=== PATIENT | male | born 1970 | race Caucasian/White ===

== ENCOUNTER 2024-12-27 02:32 | Day surgery (SDC) | payer OTHER, SELFPAY ==
[2024-12-15 08:49] VITALS: BMI 29.7
--- OUTSIDE RECORDS SUMMARY | 2024-12-27 02:34 | XMS_ITS ---
Author Organization Unknown ENCOUNTERS Encounter Performer Location Date Diagnosis Diagnosis Status Outpatient [facility] [facility] [address] [place] [id number] *Note: Encounters from your own facility or health system may be excluded. Allergies, Adverse Reactions, Alerts Allergen Type Severity Identification Date Medications Name Date Quantity Days Supplied GPI Number
[2024-12-27 08:40] VITALS: BP 134/88; PULSE 78; RESP 18; TEMP 36.2; O2SAT 98
--- NOTE | 2024-12-27 08:52 | WPDANESEPPF ---
Anes - Initial Pre Proc Eval Procedure: Operation Date: 12/27/24 10:00 Proposed Procedures p Screening Colonoscopy - Mp Marsh DO Date/Time: 12/27/24 08:52 Surgeon: Mp Marsh DO Pre Op Diagnosis: Neoplasm screening Patient Data Age: 54 Gender: M Height: 1.85 m Weight: 99.1 kg Last Vital Signs Temp 36.2 C L 12/27/24 08:40 Pulse 78 12/27/24 08:40 Resp 18 12/27/24 08:40 BP 134/88 12/27/24 08:40 Pulse Ox 98 12/27/24 08:40 O2 Del Method Room Air 12/27/24 08:40 Allergies Allergy/AdvReac Type Severity Reaction Status Date / Time No Known Allergies Allergy Verified 12/27/24 08:39 Home Medications ?Medication ?Instructions ?Recorded ?Confirmed ?Type lisinopril 10 mg tablet 10 mg PO DAILY #90 tabs 05/19/24 12/15/24 Rx atorvastatin 10 mg tablet 10 mg PO DAILY #90 tabs 10/12/24 12/15/24 Rx Patient hx anesthesia problems: none Family hx anesthesia problems: none Results Review: All pre-operative results and documents have been reviewed as part of the pre-operative evaluation. [facility] Past Medical History Medical History HLD (hyperlipidemia) HTN (hypertension) Surgical History Surgical History History of inguinal hernia repair left Torn ACL R s/p repair Family History Family History Father Hypertension High cholesterol Carcinoma of colon Mother Hypertension High cholesterol Social History Social History Smoking status: Never smoker Alcohol intake: current Drinks per week: 8 Substance use: never Substance use type: does not use Living arrangements: with family Occupation/Education: occupation Additional occupation/education comments: [employer] Gender identity (if verbalized by the patient): Male Sexual Orientation (if Verbalized by the Patient): Straight or Heterosexual Spiritual care concerns: No Anes - Eval Final PreProcedure Day of Procedure 12/27/24 08:52 Patient weight: overweight Heart: regular rate and rhythm Lungs: clear to auscultation Airway: Mallampati scale class II Neurological: alert and oriented Last oral intake: >/= 8 hours ASA classification: II Emergent: no Anesthetic plan: proceed Anesthesia type and monitoring: general GIVS and standard monitoring Results Review: All pre-operative results and documents have been reviewed as part of the pre-operative evaluation. Informed Consent: The patient's anesthetic plan and its attendant risks and benefits were discussed with the patient/family/POA. Questions were solicited and answers provided to the satisfaction of the patient/family/POA.
[2024-12-27] MEDS: LACTATED RINGERS 1,000 ML 150 ML IV CONT (08:53)
--- NOTE | 2024-12-27 10:06 | PM.IMHP ---
H&P: HPI History of Present Illness Date/Time: 12/27/24 10:06 Chief Complaint: screening for colorectal cancer Narrative: this is a 54 old man who presents for colonoscopy. His last colonoscopy was 10 years ago and was normal. He denies any hematochezia or he denies family history of colon cancer. Review of Systems Review of Systems: All systems reviewed & are unremarkable except as noted in HPI and below Constitutional: Constitutional: Denies chills, Denies fever(s), Denies headache(s) and Denies weight loss Eyes: Eyes: Denies change in vision ENT: Denies dizziness, Denies headache(s), Denies neck mass and Denies throat swelling Cardiovascular: Cardiovascular: Denies chest pain, Denies lightheadedness and Denies dyspnea Respiratory: Respiratory: Denies cough, Denies dyspnea and Denies wheezing Gastrointestinal: Gastrointestinal: Denies abdominal pain, Denies change in bowel habits, Denies nausea and Denies vomiting Genitourinary: Genitourinary: Denies hematuria and Denies dysuria Musculoskeletal: Musculoskeletal: Reports as per HPI Integumentary/Breasts: Skin/Breast: Reports as per HPI Neurologic: Denies dizziness and Denies headache(s) Allergic/Immunologic: Allergic/Immunologic: Denies throat swelling and Denies wheezing [facility] Past Medical History Medical History HLD (hyperlipidemia) HTN (hypertension) Surgical History Surgical History History of inguinal hernia repair left Torn ACL R s/p repair Family History Family History Father Hypertension High cholesterol Carcinoma of colon Mother Hypertension High cholesterol Social History Social History Smoking status: Never smoker Alcohol intake: current Drinks per week: 8 Substance use: never Substance use type: does not use Living arrangements: with family Occupation/Education: occupation Additional occupation/education comments: [employer] Gender identity (if verbalized by the patient): Male Sexual Orientation (if Verbalized by the Patient): Straight or Heterosexual Spiritual care concerns: No Meds Home Medications and Allergies Home Medications ?Medication ?Instructions ?Recorded ?Confirmed ?Type lisinopril 10 mg tablet 10 mg PO DAILY #90 tabs 05/19/24 12/15/24 Rx atorvastatin 10 mg tablet 10 mg PO DAILY #90 tabs 10/12/24 12/15/24 Rx Allergies Allergy/AdvReac Type Severity Reaction Status Date / Time No Known Allergies Allergy Verified 12/27/24 08:39 Vital Signs Vital Signs - 24 hr 12/27/24 08:40 Temperature 97.2 F L Pulse Rate 78 Respiratory Rate 18 Blood Pressure 134/88 Pulse Oximetry 98 Oxygen Delivery Room Air Exam Const: General: no acute distress and alert Orientation/consciousness: patient oriented x3 HENMT: Head: normocephalic and atraumatic Ears: hearing grossly normal bilaterally Face/Nose/Sinus: Normal nares present Mouth: Yes Normal oral and palatal mucosa present Eyes: Periorbital: periorbital findings normal Sclera: sclerae normal EOM: EOMs intact bilaterally Neck: Neck: normal visual inspection, no lymphadenopathy and trachea midline Chest: Chest palpation & inspection: normal inspection of the chest Resp: Effort & Inspection: normal respiratory effort Auscultation: clear to auscultation bilaterally Cardio: Jugular venous distension: no JVD Rate: regular rate Rhythm: regular rhythm Heart sounds: S1 normal heart sound present and S2 normal heart sound present Peripheral pulses: Peripheral pulses 2+ throughout GI: Inspection: normal to inspection GI Palp: Yes Soft to palpation, No Tenderness to palpation present (GI), No Guarding due to palpation present (GI) and No Rebound tenderness present Percussion: Yes normal to percussion Auscultation: normal bowel sounds : General: Yes no CVA tenderness Back/Spine/Pelvis: Back: no CVA tenderness Neuro: General: patient oriented x3, no focal motor deficits and CN's II-XI intact bilaterally Cognition (Neuro): normal cognition Speech: normal speech Motor exam (neuro): 5/5 motor strength present throughout Extrem: General: capillary refill normal and no clubbing, cyanosis or edema Assessment and Plan Assessment and plan (1) Screening for colorectal cancer: Code(s): Z12.11 - Encounter for screening for malignant neoplasm of colon; Z12.12 - Encounter for screening for malignant neoplasm of rectum Status: Acute Assessment and Plan: I have recommended colonoscopy. I have discussed the procedure, risks, benefits, and alternatives. Questions were answered. Patient is agreeable to proceed.
--- NOTE | 2024-12-27 10:31 | S_PTH ---
PATIENT: Haider Tavera LOC: [facility] #:[id number] AGE/SX: 54/M ROOM: RE12/27/[address]: Mp Marsh DO : 1970 BED: DIS: 12/27/2024 SPEC #: [id number] RECD: 12/27/24 12:07 STATUS: CECILIA REAndrade #: [id number] TALISHA: 12/27/24 10:[address]: Mp Marsh DEPT: [facility] Surgical RECD BY: Barbara Cochran ENTERED: 12/27/24 12:07 SP TYPE: Surgical OTHR DR: Devendra Trotter MD Tissues: A - Colon Polypectomy Procedures: Hematoxylin and Eosin Stain Gross and Microscopic Level 4
[2024-12-27 10:34] VITALS: BP 108/70; PULSE 64; RESP 16; O2SAT 95
[2024-12-27 10:44] VITALS: BP 109/75; PULSE 56; RESP 15; O2SAT 95
[2024-12-27 10:54] VITALS: BP 119/80; PULSE 75; RESP 20; O2SAT 96
== END 2024-12-27 11:07 | disposition home or self-care (01) ==
PROVIDERS: PCP Family Medicine; Visit Provider Surgery
PROC: 0DJD8ZZ Inspection of Lower Intestinal Tract, Via Natural or Artificial Opening Endoscopic (ICD-10-PCS; CPT 45378; principal; 2024-12-27 10:00)
DX: Z12.11 Encounter for screening for malignant neoplasm of colon (principal); D12.4 Benign neoplasm of descending colon; K57.30 Diverticulosis of large intestine without perforation or abscess without bleeding
CPT/HCPCS: 45385; 88305; J2003; J2704; J7120